=== PATIENT | female | born 1985 | race Two or more races ===

== ENCOUNTER → 2023-02-17 | Outpatient (CLI) | payer BC ==
[2023-02-17 08:53] LABS: Basophils # (auto) 0.1 10 ^3/uL (0-0.2); Basophils % (auto) 1.2 % (0.0-2.0); Eosinophils # (auto) 0.1 10 ^3/uL (0-0.8); Eosinophils % (auto) 0.8 % (0.0-7.0); Hematocrit 40.2 % (36.0-46.0); Hemoglobin 13.6 g/dL (12.2-16.2); Lymphocytes # (auto) 1.9 10 ^3/uL (0.4-5.4); Lymphocytes % (auto) 27.3 % (10.0-50.0); Mean Corpuscular Hemoglobin 30.8 pg (28.0-32.0); Mean Corpuscular Hgb Conc. 33.9 g/dL (32.0-36.0); Monocytes # (auto) 0.5 10 ^3/uL (0-1.3); Monocytes % (auto) 7.4 % (0.0-12.0); Neutrophils # (auto) 4.4 10 ^3/uL (1.6-8.6); Neutrophils % (auto) 63.3 % (37.0-80.0); Nucleated Red Blood Cells % 0.1 %; Red Blood Cells 4.42 10^6/uL (4.0-5.20); Red Cell Distribution Width 12.5 % (11.8-14.3)
[2023-02-17 08:59] LABS: Urine Blood Negative /uL (Negative); Urine Clarity Clear (Clear); Urine Color Yellow (Yellow); Urine Protein, UAD TRACE (Negative); Urine Specific Gravity 1.025 (1.001-1.035); Urine Urobilinogen Normal (Negative); Urine pH 5.5 (5.0-8.0)
[2023-02-17 09:39] LABS: % Iron Saturation 49.5 % (15-50); Alanine Aminotransferase 20 U/L (7-40); Albumin 4.6 g/dL (3.2-4.8); Alkaline Phosphatase 62 U/L (46-116); Anion Gap 9 (5-15); Aspartate Aminotransferase 21 U/L (13-40); BUN/Creatinine Ratio 15.3 (10.0-20.0); Blood Urea Nitrogen 11 mg/dL (9-23); Calcium 9.3 mg/dL (8.5-10.1); Carbon Dioxide 23 mmol/L (20-30); Chloride 108 mmol/L (98-107); Cholesterol 167 mg/dL (< 200); Glucose 96 mg/dL (74-106); HDL Cholesterol 63 mg/dL (40-59); LDL Cholesterol 92 mg/dL (< 100); Potassium 3.7 mmol/L (3.5-5.1); Sodium 140 mmol/L (136-145); Triglycerides 53 mg/dL (< 150)
[2023-02-17 09:40] LABS: Bilirubin, Total 1.1 mg/dL (0.2-1.0); Total Protein 7.3 g/dL (5.7-8.2)
[2023-02-17 11:00] LABS: Uric Acid 6.3 mg/dL (3.1-7.8)
[2023-02-18 07:06] LABS: RPR Non Reactive (Non Reactive)
[2023-02-18 13:53] LABS: Hepatitis B Surface Antibody Positive (Negative)
[2023-02-18 14:05] LABS: Hepatitis B Surface Antigen Negative (Negative)
[2023-02-18 23:07] LABS: Chlamydia Trachomatis, NAA Negative (Negative); Neisseria gonorrhoeae, NAA Negative (Negative)
== END | disposition home or self-care (01) ==
LOC: LAB 08:28
PROVIDERS: ATTEND Internal Medicine
DX: Z00.01 Encounter for general adult medical examination with abnormal findings (principal)
CPT/HCPCS: 36415; 80053; 80061; 81003; 82607; 83036; 83540; 83550; 84443; 84550; 85025; 86592; 86703; 86706; 86803; 87340

== ENCOUNTER → 2024-08-17 | Outpatient (CLI) | payer BC ==
[2024-08-17 12:01] LABS: Hematocrit 40.2 % (36.0-46.0); Hemoglobin 13.8 g/dL (12.2-16.2); Mean Corpuscular Hemoglobin 30.9 pg (28.0-32.0); Mean Corpuscular Volume 90.2 fL (80.0-100.0); Nucleated Red Blood Cells % 0.0 %
[2024-08-17 12:27] LABS: Urine Protein, UAD Negative (Negative)
[2024-08-17 12:28] LABS: Alanine Aminotransferase 26 U/L (7-40); Albumin 4.6 g/dL (3.2-4.8); Alkaline Phosphatase 67 U/L (46-116); Anion Gap 9 (5-15); BUN/Creatinine Ratio 19.5 (10.0-20.0); Blood Urea Nitrogen 15 mg/dL (9-23); Calcium 9.5 mg/dL (8.7-10.4); Carbon Dioxide 24 mmol/L (20-31); Cholesterol 158 mg/dL (< 200); Glucose 97 mg/dL (74-106); Potassium 4.0 mmol/L (3.5-5.1); Sodium 142 mmol/L (136-145); Total Protein 7.2 g/dL (5.7-8.2); Triglycerides 55 mg/dL (< 150)
[2024-08-17 12:29] LABS: Bilirubin, Total 0.8 mg/dL (0.2-1.0)
[2024-08-17 12:34] LABS: Chloride 109 mmol/L (98-107); HDL Cholesterol 66 mg/dL (40-59)
[2024-08-18 08:07] LABS: Hepatitis B Core Total Antibod Negative (Negative)
[2024-08-18 10:33] LABS: Hepatitis B Surface Antigen Negative (Negative)
[2024-08-19 07:06] LABS: Chlamydia Trachomatis, NAA Negative (Negative); Neisseria gonorrhoeae, NAA Negative (Negative)
== END | disposition home or self-care (01) ==
LOC: LAB 11:30
PROVIDERS: ATTEND Internal Medicine
DX: Z13.1 Encounter for screening for diabetes mellitus (principal); Z00.01 Encounter for general adult medical examination with abnormal findings
CPT/HCPCS: 36415; 80053; 80061; 81001; 83036; 84439; 84443; 85025; 86703; 86706; 86780; 86803; 87340